=== PATIENT | male | born 1945 | race Caucasian/White ===

== ENCOUNTER 2021-05-08 10:44 | Outpatient (CLI) | payer MEDICARE, OTHER, SELFPAY ==
--- NOTE | 2021-05-08 | ECG_ITS ---
Measurements Intervals [place] Rate: 80 P: 12 [place]: 146 QRS: -19 QRSD: 86 T: 22 QT: 345 QTc: 398 Interpretive Statements SINUS RHYTHM WITH SINUS ARRHYTHMIA EARLY PRECORDIAL R/S TRANSITION BORDERLINE ECG Electronically Signed On 05-08-2021 12:03:25 CDT by Home Gardner D.O.
[2021-05-08 11:37] LABS: Hematocrit 47.5 % (42.0-52.0); Hemoglobin 15.3 g/dL (14.0-18.0)
[2021-05-08 11:45] LABS: Albumin Level 4.4 g/dL (3.5-5.1); Estimated Glomerular Filt Rate > 60; Glucose 141 mg/dL (75-110)
[2021-05-08 11:53] LABS: Hemoglobin A1C 6.8 % (<5.7)
[2021-05-08 12:38] LABS: Urine Cotinine POSITIVE
== END 2021-05-08 10:45 | disposition home or self-care (01) ==
LOC: ANHLAB 10:53
PROVIDERS: PCP Family Medicine; Visit Provider Orthopaedic Surgery
DX: Z01.818 Encounter for other preprocedural examination (principal); M16.11 Unilateral primary osteoarthritis, right hip
CPT/HCPCS: 80307; 82040; 82565; 82947; 83036; 85014; 85018; 93005

== ENCOUNTER 2021-06-07 09:54 | Outpatient (CLI) | payer MEDICARE, OTHER, SELFPAY ==
--- NOTE | 2021-06-07 | ECG_ITS ---
Measurements Intervals [place] Rate: 71 P: -21 [place]: 136 QRS: -11 QRSD: 85 T: -7 QT: 380 QTc: 415 Interpretive Statements SINUS RHYTHM WITH SINUS ARRHYTHMIA EARLY PRECORDIAL R/S TRANSITION BORDERLINE ST-T WAVE ABNORMALITY- INFERIOR LEADS BORDERLINE ECG Electronically Signed On 06-07-2021 11:38:39 CDT by Home Gardner D.O.
[2021-06-07 10:53] LABS: Hematocrit 46.6 % (42.0-52.0); Hemoglobin 15.2 g/dL (14.0-18.0)
[2021-06-07 11:06] LABS: Urine Cotinine NEGATIVE
[2021-06-07 11:12] LABS: Albumin Level 4.4 g/dL (3.5-5.1); Estimated Glomerular Filt Rate > 60; Glucose 124 mg/dL (65-110)
== END 2021-06-07 09:55 | disposition home or self-care (01) ==
PROVIDERS: PCP Family Medicine; Visit Provider Orthopaedic Surgery
DX: Z01.818 Encounter for other preprocedural examination (principal); E78.2 Mixed hyperlipidemia; M16.11 Unilateral primary osteoarthritis, right hip; I49.8 Other specified cardiac arrhythmias; Z51.81 Encounter for therapeutic drug level monitoring; Z79.899 Other long term (current) drug therapy
CPT/HCPCS: 80307; 82040; 82565; 82947; 85014; 85018; 93005